=== PATIENT | male | born 1960 | race African-American/Black ===

== ENCOUNTER 2019-12-16 19:01 | Inpatient (IN) | payer MEDICARE ==
[~2019-12-16] VITALS: Ht 177.8 cm; Wt 68.5 kg
[~2019-12-16 19:01] MED LIST: ABILIFY5 MG PO; BACTRIM DS1 TAB PO; DEPAKOTE ER500 MG PO; DEPAKOTE250 MG PO; DOXYCYCL HYC100 M4 PO; KEFLEX500 MG PO; LORTAB 10 PO; MOTRIN800 MG/TAB PO; NAPROSYN500 MG PO; PERCOCET 5/325M1 TAB OR; REMERON45 MG OR; UNKNOWN ANTIBIOTIC; UNKNOWN PAIN MED; VIIBRYD10 MG OR
--- NOTE | 2019-12-16 19:03 | NUR ---
CALLED PT IN LOBBY. PT IN BATHROOM
--- NOTE | 2019-12-16 19:35 | NUR ---
BREATHING TREATMENT GIVEN ORDERED.
--- NOTE | 2019-12-16 20:00 | NUR ---
PATIENT REPORTS MARKED RELIEF FROM SOB SINCE BREATHING TREATMENTS, PATIENT APPEARS MORE COMFORTABLE, RESPIRATIONS EVEN AND UNLABORED.
[2019-12-16 20:12] LABS: HEMATOCRIT 41.8 % (39.0-50.0); HEMOGLOBIN 13.7 g/dl (14.0-18.0); IMMATURE GRANULOCYTES 0.3 % (0.0-5.0); MEAN CELL VOLUME 91.9 fL CALC (80.0-100.0); MEAN CORPUSCULAR HGB 30.1 pG CALC (26.0-32.0); MEAN CORPUSCULAR HGB CONC 32.8 g/dL CAL (32.0-36.0); NEUT# 7.03 thou/uL (1.82-7.42); RED BLOOD COUNT 4.55 mill/uL (4.70-6.10); RED CELL DISTRI WIDTH 13.1 % (11.5-15.5)
[2019-12-16 20:29] LABS: D-DIMER 1.4 mg/L (0.19-0.60)
[2019-12-16 20:30] LABS: ALBUMIN 4.3 g/dL (3.2-5.0); ALKALINE PHOSPHATASE 105 u/l (38-126); ANION GAP 12 (6-22 (CALC)); BILIRUBIN, TOTAL 0.4 mg/dL (0.0-1.4); BUN 10 mg/dL (8-23); BUN/CREATININE RATIO 14 (12-20 (CALC)); CARBON DIOXIDE 27 mmol/l (22-30); CHLORIDE 101 mmol/l (95-108); CREATININE 0.7 mg/dL (0.7-1.3); GFR > 60 ML/MIN (>=60 (CALC)); GFR FOR AFR.AMER. > 60 ML/MIN (>=60 (CALC)); POTASSIUM 4.4 mmol/l (3.5-5.1); SGOT/AST 31 u/l (19-48); SODIUM 135 mmol/l (137-146); TOTAL PROTEIN 7.6 g/dL (6.3-8.2)
[2019-12-16 20:34] LABS: C-REACTIVE PROTEIN 1.3 mg/dL (0-0.9)
[2019-12-16 20:40] LABS: URINE BILIRUBIN - DIPSTICK NEGATIVE (NEGATIVE); URINE BLOOD DIPSTICK NEGATIVE (NEGATIVE); URINE COLOR YELLOW; URINE GLUCOSE - DIPSTICK NEGATIVE (NEGATIVE); URINE KETONE NEGATIVE (NEGATIVE); URINE LEUK ESTERASE NEGATIVE (NEGATIVE); URINE NITRITE - DIPSTICK NEGATIVE (Negative); URINE PH 7.5 (4.5-8.0); URINE PROTEIN - DIPSTICK NEGATIVE (NEG-TRACE); URINE SPECIFIC GRAVITY 1.015; URINE UROBILINOGEN - DIPSTICK 0.2 E.U./dL (0.2)
--- NOTE | 2019-12-16 21:00 | NUR ---
RESTING QUIETLY, NO C/O PAIN OR DISCOMFORT, NO S/S OF DISTRESS NOTED, ABT TREATMENT IN PROGRESS.
--- NOTE | 2019-12-16 22:00 | NUR ---
RESTING QUIETLY WITH EYES CLOSED, RESPIRATIONS EVEN AND UNLABORED, NO C/O PAIN OR DISCOMFORT, NO S/S OF DISTRESS NOTED.
--- NOTE | 2019-12-16 23:00 | NUR ---
PATIENT AWAITING INPATIENT BED, LIGHTS OFF FOR COMFORT, PATIENT RESTING QUIETLY.
--- NOTE | 2019-12-17 00:01 | NUR ---
PATIENT AWAITING INPATIENT BED, RESTING QUIETLY WITH EYES CLOSED.
--- NOTE | 2019-12-17 01:29 | NUR ---
PATIENT RESTING QUIETLY AT THIS TIME, NO C/O PAIN OR DISCOMFORT, NO S/S OF DISTRESS NOTED, RESPIRATIONS EVEN AND UNLABORED.
--- NOTE | 2019-12-17 01:31 | NUR ---
PATIENT AWAITING INPATIENT BED.
--- NOTE | 2019-12-17 02:30 | NUR ---
EMPTIED URINAL WITH 350CC CLEAR YELLOW URINE, NO C/O PAIN OR DISCOMFORT, RESPIRATIONS EVEN AND UNALBORED.
--- NOTE | 2019-12-17 03:30 | NUR ---
RESTING QUIETLY WITH LIGHTS OFF, AWAITING INPATIENT BED.
[2019-12-17 04:35] LABS: HEMOGLOBIN 12.8 g/dl (14.0-18.0); IMMATURE GRANULOCYTES 0.2 % (0.0-5.0); MEAN CELL VOLUME 92.9 fL CALC (80.0-100.0); MEAN CORPUSCULAR HGB 30.5 pG CALC (26.0-32.0); MEAN CORPUSCULAR HGB CONC 32.8 g/dL CAL (32.0-36.0); NEUT# 3.82 thou/uL (1.82-7.42); RED BLOOD COUNT 4.2 mill/uL (4.70-6.10); RED CELL DISTRI WIDTH 13.1 % (11.5-15.5)
--- NOTE | 2019-12-17 04:36 | NUR ---
MORNING LABS DRAWN, URINAL EMPTIED WITH 350CC CLEAR YELLOW URINE. PATIENT AWAITING INPATIENT BED.
[2019-12-17 04:47] LABS: ALBUMIN 4.1 g/dL (3.2-5.0); ALKALINE PHOSPHATASE 89 u/l (38-126); ANION GAP 13 (6-22 (CALC)); BILIRUBIN, TOTAL 0.5 mg/dL (0.0-1.4); BUN 10 mg/dL (8-23); BUN/CREATININE RATIO 15 (12-20 (CALC)); CARBON DIOXIDE 26 mmol/l (22-30); CHLORIDE 103 mmol/l (95-108); CREATININE 0.7 mg/dL (0.7-1.3); GFR > 60 ML/MIN (>=60 (CALC)); GFR FOR AFR.AMER. > 60 ML/MIN (>=60 (CALC)); POTASSIUM 4.4 mmol/l (3.5-5.1); SGOT/AST 32 u/l (19-48); SODIUM 138 mmol/l (137-146); TOTAL PROTEIN 7.1 g/dL (6.3-8.2)
--- NOTE | 2019-12-17 05:50 | NUR ---
PATIENT RESTING QUIETLY, AWAITING INPATIENT BED, MEDICATIONS GIVEN PER PHYSICIAN ORDER. NO COUGH OR SOB NOTED AT THIS TIME.
--- NOTE | 2019-12-17 07:26 | NUR ---
RESPS EVEN,UNLABBORED. PT DENEIS COMPLAINTS THIS AM. PT STATES HIS BREATHING FEELS MUCH BETTER. LUNGS CLEAR BILATT AT THIS TIME. DRY COUGH NOTED. ATTEMPT TO CALL RT UNSUCCESSFUL. WILL ATTEMPT AGAIN SHORTLY. BREATHING TREATMENT DUE
--- NOTE | 2019-12-17 08:48 | NUR ---
BREATHING TREATMENT STARTED ON PT. PT ABLE TO TOLERATE 75% OF BREAKFAST TRAY. RESPS REMAIN EVEN, UNLABBORED. NAD NOTED.
[2019-12-17 10:07] VITALS: BP 153/89
--- NOTE | 2019-12-17 10:07 | NUR ---
PT ARRIVED TO MED/SURG ROOM 263 IN STABLE CONDITON VIA STRETCHER ACCOMPANIED BY MIRELLARN;PT AMBULATED TO BEDSIDE WITH A STEADY GAIT;WT AND VS OBTAINED AT THIS TIME;PT A&O X3,ORIENTED TO ROOM AND CALL LIGHT SYSTEM;PT DENIES ANY CURRENT PAIN OR DISCOMFORTS,PAIN SCALE AND REPORTING EDUCATED;PT REPORTS INCREASED SOB AND COUGHING X2 WEEKS,PT DENIES ANY SOB AT THIS TIME;ASSESSMENT COMPLETED;RESPIRATIONS EVEN AND UNLABORED ON RA,DIMINISHED LUNG SOUNDS;NON-PRODUCTIVE COUGH NOTED;ABDOMEN SOFT ON PALPATION AND ACTIVE IN ALL 4 QUADRANTS,LAST BM 12/16/19;STRONG PEDAL PULSES;SKIN INTACT, BUT PT REFUSES TO LET WRITTER ASSESS HIS BUTTUCK FOR WOUNDS;TELE MONITORING IN PLACE;#18G TO RAC INFUSING NS @ 125ML/HR PER ORDER,SITE APPEARS HEALTHY;FALL AND ALLERGY BAND APPLIED;HOME MEDICATONS (METHYLPREDNISOLONE & PROMETHAZINE) TO BE SENT TO PHARMACY;PT DENIES ANY ADDITIONAL NEEDS AT THIS TIME AND IS ENCOURAGED TO CALL FOR ASSISTANCE IF NEEDED;FALL PRECAUTIONS IN PLACE WITH BED IN THE LOWEST POSITION AND CALL LIGHT IN REACH;WILL CONTINUE TO MONITOR
--- NOTE | 2019-12-17 11:08 | NUR ---
PT TRANSPORTED TO MED/SURG ROOM 288 PER DEBBIE ANMONICA DUE TO PT REPORTS OF BEING EXPOSED TO A POSITIVE COVID19 [facility].
--- NOTE | 2019-12-17 12:50 | NUR ---
PT RESTING IN SEMI FOWLERS POSITION;RESPIRATIONS EVEN AND UNLABORED ON RA;PT DENIES ANY CURRENT PAIN OR NEEDS;TELE MONITORING IN PLACE;IV FLUIDS INFUSING WITH EASE;APPLE JUICE PROVIDED PER REQUEST;PT DENIES ANY ADDITIONAL NEEDS AT THIS TIME AND IS ENCOURAGED TO CALL FOR ASSISTANCE IF NEEDED;CALL LIGHT IN REACH;WILL CONTINUE TO MONITOR
--- NOTE | 2019-12-17 14:10 | NUR ---
IV SITE TO RAC FOUND INFILTRATED,SITE REMOVED WITH CATHETER INTACT.NEW #22G STARTED TO RIGHT HAND ON FIRST ATTEMPT BY THIS WRITTER AND PT TOLERATED WELL. NS RE-STARTED AT THIS TIME AND PT TO BE MEDICATED WITH SCHEDULED SOLUMEDROL PER ORDER;FRESH ICE AND CASSIE CRACKERS PROVIDED PER REQUEST;PT DENIES ANY ADDITIONAL NEEDS AND IS ENCOURAGED TO CALL FOR ASSISTANCE IF NEEDED;PT REMAINS IN ISOLATION DUE TO COVID19 TEST;CALL LIGHT IN REACH;WILL CONTINUE TO MONITOR
[2019-12-17 17:45] VITALS: BP 149/85
--- NOTE | 2019-12-17 17:45 | NUR ---
PT RESTING IN SEMI FOWLERS POSITION;RESPIRATIONS EVEN AND UNLABORED ON RA;PT DENIES ANY CURRENT PAIN OR DISCOMFORTS;TELE MONITORING IN PLACE;IV FLUIDS INFUSING WITH EASE PER ORDER;DINNER TRAY PROVIDED;PT DENIES ANY ADDITIONAL NEEDS AT THIS TIME AND IS ENCOURAGED TO CALL FOR ASSISTANCE IF NEEDED;CALL LIGHT IN REACH;WILL CONTINUE TO MONITOR
[2019-12-17 19:43] VITALS: BP 160/89
--- NOTE | 2019-12-17 20:45 | NUR ---
PT CALLED TO REPORT IVPUMP WAS SOUNDING. I WAS STANDING OUTSIDE OF ROOM AT THIS TIME SO I ENTERED SOON I COULD APPLY PPE. PT WAS BELIGERENT REGARDING THE NOISE OF THE PUMP AND HEAT OF THE ROOM. WE FOUND HIM A FAN, BUT IT IS NOT WORKING. MEDICATION SCHEDULE DISCUSSE WITH PT AT THIS TIME AND HE IS REQUESTING SEROQUIL FOR SLEEP, STATING HE ASKED THE PHYSICIAN FOR IT, I WILL CHECK HIS MEDREQ AND NOTIFY PHYSICIAN OF REQUEST IF NOT AVAILABLE ON AUG. OFFERED PT MORE ICE AND FOOD/SNACK, PT AGREED HE WOULD LIKE SOMETHING LIKE THAT AND JUICE. PT APPEARED TO BE IN A CALMER STATE I LEFT THE ROOM. I DID EXPLAIN TO THE PT THAT CARE WILL BE GROUPED TO A CERTAIN AMOUNT, BUT THAT IF HE HAS ANY KIND OF EMERGENCY OR CONCERN TO LET US KNOW AND REORIENTED THE CALL SYSTEM AND TELEPHONE USAGE ALSO. PT VERBALIZED UNDERSTANDING TO ALL. LIGHTS ADJUST AT THIS TIME TO PT'S PREFERENCE. WILL FOLLOW-UP WITH MEDICATIONS.
--- NOTE | 2019-12-17 22:15 | NUR ---
PHYSICIAN NOTIFIED OF PT REQUEST FOR SLEEP AIDE. NEW ORDERS RECEIVED.
--- NOTE | 2019-12-17 22:43 | NUR ---
PT MEDICATED FOR SLEEP AIDE ORDERS PROVIDE. PT DENIES ANY OTHER NEEDS. IV ANTIBIOTIC THERAPY IS RUNNING AND IVF WILL RESUME AFTER THAT. NO S/O DISTRESS NOTED. 400CC OF CLEAR YELLOW URINE EMPTIED FROM URINAL AT THIS TIME AND PT INSTRUCTED TO CALL NEEDS OF ASSISTANCE ARISE.
[2019-12-18] VITALS (7 sets, daily range): BP systolic 126–163; BP diastolic 62–90
--- NOTE | 2019-12-18 04:26 | NUR ---
PT MEDICATED ORDERS PROVIDE. PT DENIES ANY OTHER NEEDS. C/O "URINATING A LOT."
--- NOTE | 2019-12-18 07:30 | NUR ---
REPORT RECEIVED FROM JOHN IZAGUIRRE.
--- NOTE | 2019-12-18 09:40 | NUR ---
PT RESTING IN SEMI FOWLERS POSITION,A&O X3;VS OBTAINED AND ASSESSMENT COMPLETED;PT DENIES ANY CURRENT PAIN OR DISCOMFORTS,PAIN SCALE AND REPORTING EDUCATED;RESPIRATIONS EVEN AND UNLABORED ON RA,CLEAR/DIMINISHED LUNG SOUNDS NOTED,NON-PRODUCTIVE COUGH AT TIMES;ABDOMEN SOFT ON PALPATION AND ACTIVE IN ALL 4 QUADRANTS,LAST BM 12/17/19;STRONG PEDAL PULSES;SKIN INTACT;PNEUMONIA VACCINE ADMINISTERED TO [facility];PT DENIES ANY ADDITIONAL NEEDS AT THIS TIME;APPLIE JUICE PROVIDED;ENCOURAGED TO CALL FOR ASSISTANCE IF NEEDED;FALL PRECAUTIONS IN PLACE WITH BED IN THE LOWEST POSITION AND CALL LIGHT IN REACH;WILL CONTINUE TO MONITOR
--- NOTE | 2019-12-18 09:40 | NUR ---
PT TRANSPORTED TO ROOM 261 DUE TO COVID19 RAPID AND SWAB TESTING NEG.PT REPOSITIONED INTO BED;WILL CONTINUE TO MONITOR
--- NOTE | 2019-12-18 10:52 | NUR ---
AT BEDSIDE DISCUSSING POC WITH PT.
--- NOTE | 2019-12-18 10:54 | NUR ---
PT RESTING IN SEMI FOWLERS POSITION;RESPIRATIONS EVEN AND UNLABORED ON RA;PT DENIES ANY ADDITONAL NEEDS AT THIS TIME;TELE MONITORING IN PLACE;IV SITE PATENT;PT ENCOURAGED TO CALL FOR ASSISTANCE IF NEEDED;CALL LIGHT IN REACH;WILL CONTINUE TO MONITOR
[2019-12-18] MEDS ORDERED: BENZONATATE200 MG PO (14:06)
[2019-12-18] MEDS ORDERED: PROMETHAZI6.25 MG/5 PO (14:06)
[2019-12-18] MEDS ORDERED: ZITHROMAX Z-PA250 MG PO (14:19)
[2019-12-18] MEDS ORDERED: MEDDOSEPAK PO (14:20)
[2019-12-18] MEDS ORDERED: TRELEGY ELLIPTA1 AER IN (14:23)
[2019-12-18] MEDS ORDERED: PROAIR HFA108 MCG/AC IN (14:27)
[2019-12-18] MEDS ORDERED: METOPROL TAR100 MG PO (14:29)
[2019-12-18] MEDS ORDERED: CRESTOR20 MG PO (14:31)
[2019-12-18] MEDS ORDERED: TAMSULOSIN HCL0.4 MG PO (14:33)
--- NOTE | 2019-12-18 15:40 | NUR ---
PT RESTING IN SEMI FOWLERS POSITION;RESPIRATIONS EVEN AND UNLABORED AT THIS TIME;PT DENIES ANY CURRENT PAIN OR NEEDS;TELE MONITORING IN PLACE;IV SITE PATENT; RAZOR AND SHAVING CREAM PROVIDED PER REQUEST;PT ENCOURAGED TO CALL FOR ASSISTANCE IF NEEDED;FALL PRECAUTIONS IN PLACE WITH CALL LIGHT IN REACH;WILL CONTINUE TO MONITOR
--- NOTE | 2019-12-18 19:50 | NUR ---
PT JUST GOT OUT OF THE SHOWER, REPORTS FEELING REALLY GOOD AND WISHES HE COULD STAY HERE ALL THE TIME. STATES HE HAS BEEN VERY WELL TAKEN CARE OF. POWER SYSTEMS ENGINEER REPLACED AT THIS TIME. IV SITE DRESSING IS WET, DRESSING CHANGED AT THIS TIME. ASSESSMENT COMPLETED AND PT PROVIDED SNACK REQUESTED. PT IS ASKING FOR SANDWICHES/NO SANDWICHES ARE AVAILABLE, OTHER SNACK PROVIDED. PT DENIES ANY OTHER NEEDS AT THIS TIME. CALL LIGHT AT SIDE AND PT ENCOURAGED TO CALL NEEDS ARISE.
--- NOTE | 2019-12-18 22:30 | NUR ---
PT MEDICATED ORDERS PROVIDE. ANTIBIOTIC THERAPY UNABLE TO RUN TO IV SITE TO RH/APPEARS OCCLUDED/ATTEMPTS TO SAVE SITE WERE MADE TO NO AVAIL. NEW IV SITE ACCESSED/PT TOLERATED WELL. PT MEDICATED FOR COUGH, INDEGESTION AND W/SLEEP AIDE PER REQUEST AND SANWICH PROVIDED. PT DENIES ANY OTHER NEEDS AT THIS TIME.
[2019-12-19 03:40] VITALS: BP 105/66
--- NOTE | 2019-12-19 05:28 | NUR ---
PT MEDICATED ORDERS PROVIDE. PT HAVING A COUGHING SPELL WHILE I'M IN THE ROOM. WAS SLEEPING SOUNDLY WHEN I ENTERED. PT DENIES NEED OF ASSISTANCE AT THIS TIME. CALL LIGHT AT SIDE.
[2019-12-19 08:40] VITALS: BP 141/64
--- NOTE | 2019-12-19 08:40 | NUR ---
ASSESSMENT IS COMPLETED: IV SITE IS FREE FROM REDNESS OR EDEMA. HR IS REG,PULSES ARE STRONG X4, ABD IS SOFT WITH ACTIVE BS. BREATH SOUNDS ARE CLEAR AND DIMINISHED. TELE MONITOR IN PLACE. CONTINUE TO OSEBRVE AND MONITOR.
[2019-12-19 10:44] VITALS: BP 162/92
[2019-12-19] MEDS ORDERED: PREDNISONE10 MG PO (11:45)
[2019-12-19] MEDS ORDERED: ZITHROMAX Z-PA250 MG PO (11:45)
[2019-12-19] MEDS ORDERED: BENZONATATE200 MG PO (11:45)
[2019-12-19] MEDS ORDERED: IPRATROPIU0.5 MG/3 M IN (11:45)
--- NOTE | 2019-12-19 12:00 | NUR ---
PT IS RELAXING IN BED VISITING WITH FAMILY. WAITING FOR DISCHARGE. CONTINUE TO OSBERVE AND MONITOR.
--- NOTE | 2019-12-19 12:54 | NUR ---
IV SITE DISCONTINUED CATHETER INTACT. NO REDNESS OR EDEMA. DISCHARGE INSTRUCTIONS GIVEN AND VERBALIZED UNDERSTAND. WAITING ON MEDICATIONS FROM PHARMACY.
--- NOTE | 2019-12-19 13:00 | NUR ---
PT IS WITH FAMILY FOR DISCHARGE. CONTINUE TO OSBERVE AND MONITOR.
--- NOTE | 2019-12-19 13:40 | NUR ---
Discharge instructions given. Patient verbalizes understanding of same. Discharged in stable condition via Wheelchair to Home with family. All belongings sent with pt.
--- NOTE | 2019-12-25 14:50 | NUR ---
Pneumonia follow up D/C call done today. Pt states he is feeling better but still very winded. Obtained all medication prescribed on discharge. Pt. states he stopped taking prednisone because it gave him a headache. States he has not been taking antibiotics- he was saving them. He didn't think he needed them. Encouraged patient to take prescribed antibiotics and to call PCP for follow up appt. Also encouraged him to get direction from PCP regarding prednisone. Pt states he will call tomorrow. Appreciative of call.
== END 2019-12-19 13:07 | disposition home or self-care (01) | DRG 192 ==
LOC: ED 19:01 → ED-I 23:09 → ED 23:31 → ED-I 23:32 → MS2 23:32 → ED-I 23:32 → MS2 12-17 09:04
PROVIDERS: ADMIT Internal Medicine; ATTEND Internal Medicine
PROC: 3E0234Z Introduction of Serum, Toxoid and Vaccine into Muscle, Percutaneous Approach (ICD-10-PCS; principal; 2019-12-18)
DX: J44.1 Chronic obstructive pulmonary disease with (acute) exacerbation (principal); I10 Essential (primary) hypertension; F31.9 Bipolar disorder, unspecified; F17.200 Nicotine dependence, unspecified, uncomplicated; Z23 Encounter for immunization; Z20.828 Contact with and (suspected) exposure to other viral communicable diseases
CPT/HCPCS: Q9967

== ENCOUNTER 2020-01-18 08:47 | Emergency (ER) | payer MEDICARE ==
[~2020-01-18] VITALS: Ht 177.8 cm; Wt 72.0 kg
[~2020-01-18 08:47] MED LIST changes: +BENZONATATE200 MG PO; +CRESTOR20 MG PO; +IPRATROPIU0.5 MG/3 M IN; +MEDDOSEPAK PO; +METOPROL TAR100 MG PO; +PREDNISONE10 MG PO; +PROAIR HFA108 MCG/AC IN; +PROMETHAZI6.25 MG/5 PO; +TAMSULOSIN HCL0.4 MG PO; +TRELEGY ELLIPTA1 AER IN; +ZITHROMAX Z-PA250 MG PO
[2020-01-18 09:36] LABS: HEMATOCRIT 40.3 % (39.0-50.0); HEMOGLOBIN 13.2 g/dl (14.0-18.0); IMMATURE GRANULOCYTES 0.4 % (0.0-5.0); MEAN CELL VOLUME 92.9 fL CALC (80.0-100.0); MEAN CORPUSCULAR HGB 30.4 pG CALC (26.0-32.0); MEAN CORPUSCULAR HGB CONC 32.8 g/dL CAL (32.0-36.0); NEUT# 2.27 thou/uL (1.82-7.42); RED BLOOD COUNT 4.34 mill/uL (4.70-6.10); RED CELL DISTRI WIDTH 13.4 % (11.5-15.5)
[2020-01-18 09:48] LABS: ALBUMIN 4.3 g/dL (3.2-5.0); ALKALINE PHOSPHATASE 90 u/l (38-126); BILIRUBIN, TOTAL 0.4 mg/dL (0.0-1.4); BUN 15 mg/dL (8-23); BUN/CREATININE RATIO 20 (12-20 (CALC)); CARBON DIOXIDE 30 mmol/l (22-30); CHLORIDE 102 mmol/l (95-108); CREATININE 0.8 mg/dL (0.7-1.3); GFR > 60 ML/MIN (>=60 (CALC)); GFR FOR AFR.AMER. > 60 ML/MIN (>=60 (CALC)); SGOT/AST 51 u/l (19-48); SODIUM 138 mmol/l (137-146); TOTAL PROTEIN 7.4 g/dL (6.3-8.2)
[2020-01-18 09:54] LABS: D-DIMER 1.11 mg/L (0.19-0.60)
[2020-01-18 09:56] LABS: INTERNATIONAL NORMALIZED RATIO 0.9 RATIO (0.7-1.3); PROTHROMBIN TIME 9.2 SECONDS (9.0-12.5)
[2020-01-18 10:00] LABS: MYOGLOBIN 79 ng/mL (0 - 121)
[2020-01-18 10:02] LABS: ANION GAP 10 (6-22 (CALC)); POTASSIUM 3.5 mmol/l (3.5-5.1)
[2020-01-18] MEDS ORDERED: ZITHROMAX250 MG PO (11:33)
[2020-01-18] MEDS ORDERED: MEDDOSEPAK PO ×2 (11:33)
[2020-01-18 11:42] VITALS: BP 128/68
== END 2020-01-18 11:58 | disposition home or self-care (01) ==
LOC: ED 08:47
DX: J44.1 Chronic obstructive pulmonary disease with (acute) exacerbation (principal); I10 Essential (primary) hypertension; F17.210 Nicotine dependence, cigarettes, uncomplicated; Z20.828 Contact with and (suspected) exposure to other viral communicable diseases
CPT/HCPCS: Q9967

== ENCOUNTER 2020-02-05 05:25 | Emergency (ER) | payer MEDICARE ==
[~2020-02-05] VITALS: Ht 177.8 cm; Wt 68.0 kg
[~2020-02-05 05:25] MED LIST changes: +ZITHROMAX250 MG PO
--- NOTE | 2020-02-05 05:54 | NUR ---
BREATHING TREATMENT GIVEN BACK TO BACK.
[2020-02-05 06:12] LABS: HEMATOCRIT 37.9 % (39.0-50.0); HEMOGLOBIN 12.1 g/dl (14.0-18.0); IMMATURE GRANULOCYTES 0.2 % (0.0-5.0); MEAN CELL VOLUME 93.8 fL CALC (80.0-100.0); MEAN CORPUSCULAR HGB CONC 31.9 g/dL CAL (32.0-36.0); NEUT# 3.26 thou/uL (1.82-7.42); RED BLOOD COUNT 4.04 mill/uL (4.70-6.10); RED CELL DISTRI WIDTH 13.2 % (11.5-15.5)
[2020-02-05 06:44] LABS: ALBUMIN 3.9 g/dL (3.2-5.0); ALKALINE PHOSPHATASE 81 u/l (38-126); ANION GAP 9 (6-22 (CALC)); BILIRUBIN, TOTAL 0.4 mg/dL (0.0-1.4); BUN 12 mg/dL (8-23); BUN/CREATININE RATIO 15 (12-20 (CALC)); CARBON DIOXIDE 28 mmol/l (22-30); CHLORIDE 104 mmol/l (95-108); CREATININE 0.8 mg/dL (0.7-1.3); GFR > 60 ML/MIN (>=60 (CALC)); GFR FOR AFR.AMER. > 60 ML/MIN (>=60 (CALC)); POTASSIUM 3.7 mmol/l (3.5-5.1); SGOT/AST 32 u/l (19-48); SODIUM 137 mmol/l (137-146); TOTAL PROTEIN 6.6 g/dL (6.3-8.2)
[2020-02-05 06:52] LABS: D-DIMER 1.07 mg/L (0.19-0.60)
[2020-02-05 06:54] LABS: MYOGLOBIN 57 ng/mL (0 - 121)
[2020-02-05 07:01] LABS: PROTHROMBIN TIME 9.6 SECONDS (9.0-12.5)
[2020-02-05 07:51] LABS: URINE BILIRUBIN - DIPSTICK NEGATIVE (NEGATIVE); URINE BLOOD DIPSTICK NEGATIVE (NEGATIVE); URINE COLOR YELLOW; URINE GLUCOSE - DIPSTICK NEGATIVE (NEGATIVE); URINE KETONE NEGATIVE (NEGATIVE); URINE LEUK ESTERASE NEGATIVE (NEGATIVE); URINE NITRITE - DIPSTICK NEGATIVE (Negative); URINE PH 5.5 (4.5-8.0); URINE PROTEIN - DIPSTICK NEGATIVE (NEG-TRACE); URINE UROBILINOGEN - DIPSTICK 0.2 E.U./dL (0.2)
[2020-02-05] MEDS ORDERED: PROAIR HFA108 MCG/AC PO ×2 (08:15)
[2020-02-05] MEDS ORDERED: PREDNISONE50 MG PO ×2 (08:15)
[2020-02-05] MEDS ORDERED: ZPAK PO ×2 (08:17)
[2020-02-05 09:45] VITALS: BP 164/107
--- NOTE | 2020-02-06 08:07 | NUR ---
PRELIMINARY BLOOD CX RESULTS SHOW GRAM POSITIVE COCCI IN [address] SET[address] RESULTS CALL[address] TO DR RIVERO WHO RECOMMENDED CALLING PT. SPOKE WITH PT, REPORTS FEELING "100% BETTER", FILLED RXS AND HAS BEEN TAKING PRESCRIBED. WILL F/U WITH FINAL RESULTS.
== END 2020-02-05 09:45 | disposition home or self-care (01) ==
LOC: ED 05:25
PROVIDERS: Family Medicine
DX: J44.1 Chronic obstructive pulmonary disease with (acute) exacerbation (principal); I10 Essential (primary) hypertension; F17.210 Nicotine dependence, cigarettes, uncomplicated; Z20.828 Contact with and (suspected) exposure to other viral communicable diseases
CPT/HCPCS: Q9967

== ENCOUNTER 2020-02-16 21:02 | Emergency (ER) | payer MEDICARE ==
[~2020-02-16] VITALS: Ht 177.8 cm; Wt 70.5 kg
[~2020-02-16 21:02] MED LIST changes: +PREDNISONE50 MG PO; +PROAIR HFA108 MCG/AC PO; +ZPAK PO
[2020-02-16 21:50] LABS: HEMATOCRIT 37.6 % (39.0-50.0); IMMATURE GRANULOCYTES 0.5 % (0.0-5.0); MEAN CELL VOLUME 93.3 fL CALC (80.0-100.0); MEAN CORPUSCULAR HGB 29.8 pG CALC (26.0-32.0); MEAN CORPUSCULAR HGB CONC 31.9 g/dL CAL (32.0-36.0); NEUT# 1.98 thou/uL (1.82-7.42); RED BLOOD COUNT 4.03 mill/uL (4.70-6.10); RED CELL DISTRI WIDTH 13.5 % (11.5-15.5)
[2020-02-16 22:07] LABS: ALBUMIN 4.1 g/dL (3.2-5.0); ALKALINE PHOSPHATASE 74 u/l (38-126); ANION GAP 13 (6-22 (CALC)); BILIRUBIN, TOTAL 0.4 mg/dL (0.0-1.4); BUN 12 mg/dL (8-23); BUN/CREATININE RATIO 14 (12-20 (CALC)); CARBON DIOXIDE 25 mmol/l (22-30); CHLORIDE 103 mmol/l (95-108); CREATININE 0.9 mg/dL (0.7-1.3); GFR > 60 ML/MIN (>=60 (CALC)); GFR FOR AFR.AMER. > 60 ML/MIN (>=60 (CALC)); POTASSIUM 4.1 mmol/l (3.5-5.1); SGOT/AST 42 u/l (19-48); SODIUM 136 mmol/l (137-146); TOTAL PROTEIN 6.7 g/dL (6.3-8.2)
[2020-02-16 22:20] LABS: MYOGLOBIN 127 ng/mL (0 - 121)
[2020-02-16] MEDS ORDERED: KEFLEX500 M1 PO ×2 (22:38)
[2020-02-16] MEDS ORDERED: ROBITUSSIN AC10 ML PO (22:38)
[2020-02-16] MEDS ORDERED: MEDDOSEPAK PO ×2 (22:39)
[2020-02-16 23:10] VITALS: BP 141/69
[2020-02-16 23:19] LABS: URINE BILIRUBIN - DIPSTICK NEGATIVE (NEGATIVE); URINE BLOOD DIPSTICK NEGATIVE (NEGATIVE); URINE COLOR YELLOW; URINE GLUCOSE - DIPSTICK NEGATIVE (NEGATIVE); URINE KETONE NEGATIVE (NEGATIVE); URINE LEUK ESTERASE NEGATIVE (NEGATIVE); URINE NITRITE - DIPSTICK NEGATIVE (Negative); URINE PH 5.5 (4.5-8.0); URINE PROTEIN - DIPSTICK NEGATIVE (NEG-TRACE); URINE SPECIFIC GRAVITY <=1.005; URINE UROBILINOGEN - DIPSTICK 0.2 E.U./dL (0.2)
== END 2020-02-16 23:10 | disposition home or self-care (01) ==
LOC: ED 21:02
PROVIDERS: Emergency Medicine
DX: J44.9 Chronic obstructive pulmonary disease, unspecified (principal); I10 Essential (primary) hypertension; F17.200 Nicotine dependence, unspecified, uncomplicated; Z20.828 Contact with and (suspected) exposure to other viral communicable diseases; R06.02 Shortness of breath

== ENCOUNTER 2020-04-07 19:42 | Emergency (ER) | payer MEDICARE ==
[~2020-04-07] VITALS: Ht 177.8 cm; Wt 72.7 kg
[~2020-04-07 19:42] MED LIST changes: +KEFLEX500 M1 PO; +ROBITUSSIN AC10 ML PO
[2020-04-07 20:29] LABS: HEMATOCRIT 39.6 % (39.0-50.0); HEMOGLOBIN 12.7 g/dl (14.0-18.0); IMMATURE GRANULOCYTES 0.3 % (0.0-5.0); MEAN CELL VOLUME 95.4 fL CALC (80.0-100.0); MEAN CORPUSCULAR HGB 30.6 pG CALC (26.0-32.0); MEAN CORPUSCULAR HGB CONC 32.1 g/dL CAL (32.0-36.0); NEUT# 1.19 thou/uL (1.82-7.42); RED BLOOD COUNT 4.15 mill/uL (4.70-6.10); RED CELL DISTRI WIDTH 13.5 % (11.5-15.5)
[2020-04-07 20:46] LABS: ALBUMIN 4.1 g/dL (3.2-5.0); ALKALINE PHOSPHATASE 74 u/l (38-126); AMYLASE 82 u/l (30-110); ANION GAP 12 (6-22 (CALC)); BUN 8 mg/dL (8-23); BUN/CREATININE RATIO 8 (12-20 (CALC)); CARBON DIOXIDE 25 mmol/l (22-30); CHLORIDE 104 mmol/l (95-108); CPK 257 u/l (52-200); CREATININE 0.9 mg/dL (0.7-1.3); GFR > 60 ML/MIN (>=60 (CALC)); GFR FOR AFR.AMER. > 60 ML/MIN (>=60 (CALC)); LIPASE 77 u/l (23-300); POTASSIUM 4.2 mmol/l (3.5-5.1); SGOT/AST 34 u/l (19-48); SODIUM 138 mmol/l (137-146)
[2020-04-07 20:48] LABS: BILIRUBIN, TOTAL 0.2 mg/dL (0.0-1.4)
[2020-04-07] MEDS ORDERED: HYCODAN1 ML PO (22:14)
[2020-04-07] MEDS ORDERED: MEDDOSEPAK PO ×2 (22:14→22:15)
[2020-04-07] MEDS ORDERED: ZPAK PO (22:14)
[2020-04-07 22:17] VITALS: BP 164/94
[2020-04-07 22:52] LABS: URINE BILIRUBIN - DIPSTICK NEGATIVE (NEGATIVE); URINE BLOOD DIPSTICK NEGATIVE (NEGATIVE); URINE COLOR YELLOW; URINE GLUCOSE - DIPSTICK NEGATIVE (NEGATIVE); URINE KETONE NEGATIVE (NEGATIVE); URINE LEUK ESTERASE NEGATIVE (NEGATIVE); URINE NITRITE - DIPSTICK NEGATIVE (Negative); URINE PROTEIN - DIPSTICK NEGATIVE (NEG-TRACE); URINE UROBILINOGEN - DIPSTICK 0.2 E.U./dL (0.2)
== END 2020-04-07 22:59 | disposition home or self-care (01) ==
LOC: ED 19:42
DX: J44.1 Chronic obstructive pulmonary disease with (acute) exacerbation (principal); I10 Essential (primary) hypertension; F31.9 Bipolar disorder, unspecified; F17.200 Nicotine dependence, unspecified, uncomplicated; Z20.828 Contact with and (suspected) exposure to other viral communicable diseases
CPT/HCPCS: Q9967

== ENCOUNTER 2020-05-05 09:40 | Emergency (ER) | payer MEDICARE ==
[~2020-05-05] VITALS: Ht 177.8 cm; Wt 80.0 kg
[~2020-05-05 09:40] MED LIST changes: +HYCODAN1 ML PO
[2020-05-05 10:27] LABS: HEMATOCRIT 44.7 % (39.0-50.0); HEMOGLOBIN 14.4 g/dl (14.0-18.0); IMMATURE GRANULOCYTES 0.2 % (0.0-5.0); MEAN CELL VOLUME 94.5 fL CALC (80.0-100.0); MEAN CORPUSCULAR HGB 30.4 pG CALC (26.0-32.0); MEAN CORPUSCULAR HGB CONC 32.2 g/dL CAL (32.0-36.0); NEUT# 1.78 thou/uL (1.82-7.42); RED BLOOD COUNT 4.73 mill/uL (4.70-6.10)
[2020-05-05 10:45] LABS: ALBUMIN 4.4 g/dL (3.2-5.0); ALKALINE PHOSPHATASE 91 u/l (38-126); ANION GAP 13 (6-22 (CALC)); BUN 20 mg/dL (8-23); BUN/CREATININE RATIO 21 (12-20 (CALC)); CARBON DIOXIDE 30 mmol/l (22-30); CHLORIDE 102 mmol/l (95-108); GFR > 60 ML/MIN (>=60 (CALC)); GFR FOR AFR.AMER. > 60 ML/MIN (>=60 (CALC)); POTASSIUM 4.7 mmol/l (3.5-5.1); SODIUM 140 mmol/l (137-146); TOTAL PROTEIN 7.7 g/dL (6.3-8.2)
[2020-05-05 10:53] LABS: BILIRUBIN, TOTAL 0.3 mg/dL (0.0-1.4); SGOT/AST 67 u/l (19-48)
[2020-05-05 11:06] VITALS: BP 129/86
== END 2020-05-05 10:55 | disposition short-term general hospital (02) ==
LOC: ED 09:40
PROVIDERS: Family Medicine
DX: I20.0 Unstable angina (principal); I10 Essential (primary) hypertension; F31.9 Bipolar disorder, unspecified; F17.200 Nicotine dependence, unspecified, uncomplicated; Z20.828 Contact with and (suspected) exposure to other viral communicable diseases
CPT/HCPCS: J1644

== ENCOUNTER 2020-11-04 09:09 | Emergency (ER) | payer MEDICARE ==
[~2020-11-04] VITALS: Ht 177.8 cm; Wt 73.6 kg
[2020-11-04 09:42] LABS: HEMATOCRIT 43.2 % (39.0-50.0); HEMOGLOBIN 13.5 g/dl (14.0-18.0); IMMATURE GRANULOCYTES 0.2 % (0.0-5.0); MEAN CELL VOLUME 94.3 fL CALC (80.0-100.0); MEAN CORPUSCULAR HGB 29.5 pG CALC (26.0-32.0); MEAN CORPUSCULAR HGB CONC 31.3 g/dL CAL (32.0-36.0); NEUT# 1.79 thou/uL (1.82-7.42); RED BLOOD COUNT 4.58 mill/uL (4.70-6.10); RED CELL DISTRI WIDTH 12.7 % (11.5-15.5)
[2020-11-04 09:54] LABS: ALBUMIN 4.2 g/dL (3.2-5.0); ALKALINE PHOSPHATASE 108 u/l (38-126); BUN 11 mg/dL (8-23); BUN/CREATININE RATIO 14 (12-20 (CALC)); CARBON DIOXIDE 30 mmol/l (22-30); CHLORIDE 103 mmol/l (95-108); CREATININE 0.8 mg/dL (0.7-1.3); GFR > 60 ML/MIN (>=60 (CALC)); GFR FOR AFR.AMER. > 60 ML/MIN (>=60 (CALC)); SGOT/AST 49 u/l (19-48); SODIUM 139 mmol/l (137-146)
[2020-11-04 09:55] LABS: ANION GAP 10 (6-22 (CALC)); BILIRUBIN, TOTAL 0.5 mg/dL (0.0-1.4); POTASSIUM 3.7 mmol/l (3.5-5.1)
[2020-11-04] MEDS ORDERED: CHERATUSSIN PO (10:17)
[2020-11-04] MEDS ORDERED: PREDNISONE50 MG PO (10:17)
[2020-11-04] MEDS ORDERED: DOXYCYC MONO100 M2 PO (10:17)
[2020-11-04 10:24] VITALS: BP 166/88
== END 2020-11-04 10:34 | disposition home or self-care (01) ==
LOC: ED 09:09
PROVIDERS: Family Medicine
DX: J44.9 Chronic obstructive pulmonary disease, unspecified (principal); I10 Essential (primary) hypertension; F31.9 Bipolar disorder, unspecified; F17.200 Nicotine dependence, unspecified, uncomplicated; Z20.822 Contact with and (suspected) exposure to COVID-19

== ENCOUNTER 2020-11-13 05:34 | Emergency (ER) | payer MEDICARE ==
[~2020-11-13] VITALS: Ht 177.8 cm; Wt 75.0 kg
[~2020-11-13 05:34] MED LIST changes: +CHERATUSSIN PO; +DOXYCYC MONO100 M2 PO
[2020-11-13 06:46] LABS: HEMATOCRIT 42.3 % (39.0-50.0); HEMOGLOBIN 13.7 g/dl (14.0-18.0); IMMATURE GRANULOCYTES 0.4 % (0.0-5.0); MEAN CORPUSCULAR HGB 29.8 pG CALC (26.0-32.0); MEAN CORPUSCULAR HGB CONC 32.4 g/dL CAL (32.0-36.0); NEUT# 1.65 thou/uL (1.82-7.42); RED BLOOD COUNT 4.6 mill/uL (4.70-6.10); RED CELL DISTRI WIDTH 13.2 % (11.5-15.5)
[2020-11-13] MEDS ORDERED: STERAPRED DS10 MG PO (06:53)
[2020-11-13 07:03] VITALS: BP 148/81
== END 2020-11-13 07:12 | disposition home or self-care (01) ==
LOC: ED 05:34
PROVIDERS: Family Medicine
DX: J44.1 Chronic obstructive pulmonary disease with (acute) exacerbation (principal); I10 Essential (primary) hypertension; F31.9 Bipolar disorder, unspecified; F17.210 Nicotine dependence, cigarettes, uncomplicated

== ENCOUNTER 2020-12-03 17:30 | Emergency (ER) | payer MEDICARE ==
[~2020-12-03] VITALS: Ht 177.8 cm; Wt 75.0 kg
[~2020-12-03 17:30] MED LIST changes: +STERAPRED DS10 MG PO
[2020-12-03 18:47] LABS: HEMATOCRIT 39.8 % (39.0-50.0); HEMOGLOBIN 12.8 g/dl (14.0-18.0); IMMATURE GRANULOCYTES 0.4 % (0.0-5.0); MEAN CELL VOLUME 92.3 fL CALC (80.0-100.0); MEAN CORPUSCULAR HGB 29.7 pG CALC (26.0-32.0); MEAN CORPUSCULAR HGB CONC 32.2 g/dL CAL (32.0-36.0); NEUT# 3.81 thou/uL (1.82-7.42); RED BLOOD COUNT 4.31 mill/uL (4.70-6.10)
[2020-12-03 19:00] LABS: ALBUMIN 3.7 g/dL (3.2-5.0); ALKALINE PHOSPHATASE 65 u/l (38-126); ANION GAP 7 (6-22 (CALC)); BILIRUBIN, TOTAL 0.2 mg/dL (0.0-1.4); BUN 15 mg/dL (8-23); BUN/CREATININE RATIO 16 (12-20 (CALC)); CARBON DIOXIDE 30 mmol/l (22-30); CHLORIDE 102 mmol/l (95-108); CREATININE 0.9 mg/dL (0.7-1.3); GFR > 60 ML/MIN (>=60 (CALC)); GFR FOR AFR.AMER. > 60 ML/MIN (>=60 (CALC)); POTASSIUM 4.3 mmol/l (3.5-5.1); SGOT/AST 25 u/l (19-48); SODIUM 135 mmol/l (137-146); TOTAL PROTEIN 6.8 g/dL (6.3-8.2)
[2020-12-03 19:12] LABS: MYOGLOBIN 20 ng/mL (0 - 121)
[2020-12-03 20:21] LABS: URINE BILIRUBIN - DIPSTICK NEGATIVE (NEGATIVE); URINE BLOOD DIPSTICK NEGATIVE (NEGATIVE); URINE COLOR YELLOW; URINE GLUCOSE - DIPSTICK NEGATIVE (NEGATIVE); URINE KETONE TRACE mg/dL (NEGATIVE); URINE LEUK ESTERASE NEGATIVE (NEGATIVE); URINE PROTEIN - DIPSTICK NEGATIVE (NEG-TRACE); URINE SPECIFIC GRAVITY 1.025; URINE UROBILINOGEN - DIPSTICK 0.2 E.U./dL (0.2)
[2020-12-03 20:24] LABS: URINE NITRITE - DIPSTICK NEGATIVE (Negative)
[2020-12-03 21:40] VITALS: BP 128/62
== END 2020-12-03 21:57 | disposition home or self-care (01) ==
LOC: ED 17:30
PROVIDERS: Emergency Medicine
DX: R07.89 Other chest pain (principal); I10 Essential (primary) hypertension; F31.9 Bipolar disorder, unspecified; F17.200 Nicotine dependence, unspecified, uncomplicated; Z20.822 Contact with and (suspected) exposure to COVID-19
CPT/HCPCS: Q9967

== ENCOUNTER 2021-02-18 19:32 | Emergency (ER) | payer MEDICARE ==
[~2021-02-18] VITALS: Ht 177.8 cm; Wt 79.5 kg
[2021-02-18 20:55] LABS: HEMATOCRIT 42.1 % (39.0-50.0); HEMOGLOBIN 13.3 g/dl (14.0-18.0); IMMATURE GRANULOCYTES 0.3 % (0.0-5.0); MEAN CORPUSCULAR HGB CONC 31.6 g/dL CAL (32.0-36.0); NEUT# 4.27 thou/uL (1.82-7.42); RED BLOOD COUNT 4.43 mill/uL (4.70-6.10); RED CELL DISTRI WIDTH 13.7 % (11.5-15.5)
[2021-02-18 20:56] LABS: URINE BILIRUBIN - DIPSTICK NEGATIVE (NEGATIVE); URINE BLOOD DIPSTICK NEGATIVE (NEGATIVE); URINE COLOR YELLOW; URINE GLUCOSE - DIPSTICK NEGATIVE (NEGATIVE); URINE KETONE NEGATIVE (NEGATIVE); URINE LEUK ESTERASE NEGATIVE (NEGATIVE); URINE PROTEIN - DIPSTICK NEGATIVE (NEG-TRACE); URINE UROBILINOGEN - DIPSTICK 0.2 E.U./dL (0.2)
[2021-02-18 20:57] LABS: URINE NITRITE - DIPSTICK NEGATIVE (Negative)
[2021-02-18 21:07] LABS: ALKALINE PHOSPHATASE 72 u/l (38-126); ANION GAP 10 (6-22 (CALC)); BILIRUBIN, TOTAL 0.1 mg/dL (0.0-1.4); BUN 13 mg/dL (8-23); BUN/CREATININE RATIO 12 (12-20 (CALC)); CARBON DIOXIDE 32 mmol/l (22-30); CHLORIDE 102 mmol/l (95-108); GFR > 60 ML/MIN (>=60 (CALC)); GFR FOR AFR.AMER. > 60 ML/MIN (>=60 (CALC)); POTASSIUM 3.5 mmol/l (3.5-5.1); SGOT/AST 25 u/l (19-48); SODIUM 140 mmol/l (137-146)
[2021-02-18] MEDS ORDERED: TORADOL PO (22:08)
[2021-02-18 22:10] VITALS: BP 158/86
[2021-02-19] MEDS ORDERED: FIORICET PO (11:23)
== END 2021-02-18 22:19 | disposition home or self-care (01) ==
LOC: ED 19:32
PROVIDERS: Family Medicine
DX: R51.9 Headache, unspecified (principal); I10 Essential (primary) hypertension; F31.9 Bipolar disorder, unspecified; F17.210 Nicotine dependence, cigarettes, uncomplicated; F17.220 Nicotine dependence, chewing tobacco, uncomplicated

== ENCOUNTER 2021-02-19 09:22 | Emergency (ER) | payer MEDICARE ==
[~2021-02-19] VITALS: Ht 177.8 cm; Wt 70.0 kg
[~2021-02-19 09:22] MED LIST changes: +TORADOL PO
[2021-02-19] MEDS ORDERED: FIORICET PO (11:23)
[2021-02-19 11:38] VITALS: BP 170/80
== END 2021-02-19 11:38 | disposition home or self-care (01) ==
LOC: ED 09:22
DX: R51.9 Headache, unspecified (principal); I10 Essential (primary) hypertension; F31.9 Bipolar disorder, unspecified; F17.200 Nicotine dependence, unspecified, uncomplicated

== ENCOUNTER 2021-02-26 21:21 | Emergency (ER) | payer MEDICARE ==
[~2021-02-26] VITALS: Ht 177.8 cm; Wt 89.0 kg
[~2021-02-26 21:21] MED LIST changes: +FIORICET PO
[2021-02-26 22:00] LABS: HEMOGLOBIN 12.6 g/dl (14.0-18.0); IMMATURE GRANULOCYTES 0.2 % (0.0-5.0); MEAN CELL VOLUME 94.3 fL CALC (80.0-100.0); MEAN CORPUSCULAR HGB 29.7 pG CALC (26.0-32.0); MEAN CORPUSCULAR HGB CONC 31.5 g/dL CAL (32.0-36.0); NEUT# 2.54 thou/uL (1.82-7.42); RED BLOOD COUNT 4.24 mill/uL (4.70-6.10); RED CELL DISTRI WIDTH 13.5 % (11.5-15.5)
[2021-02-26 22:13] LABS: ALKALINE PHOSPHATASE 45 u/l (38-126); BUN 8 mg/dL (8-23); BUN/CREATININE RATIO 15 (12-20 (CALC)); CREATININE 0.6 mg/dL (0.7-1.3); GFR > 60 ML/MIN (>=60 (CALC)); GFR FOR AFR.AMER. > 60 ML/MIN (>=60 (CALC)); SGOT/AST 24 u/l (19-48); SODIUM 140 mmol/l (137-146)
[2021-02-26 22:15] LABS: ALBUMIN 2.8 g/dL (3.2-5.0); ANION GAP 7 (6-22 (CALC)); BILIRUBIN, TOTAL 0.3 mg/dL (0.0-1.4); CARBON DIOXIDE 20 mmol/l (22-30); CHLORIDE 116 mmol/l (95-108); POTASSIUM 2.7 mmol/l (3.5-5.1); TOTAL PROTEIN 5.2 g/dL (6.3-8.2)
[2021-02-26 22:25] LABS: MYOGLOBIN 48 ng/mL (0 - 121)
[2021-02-27 00:54] LABS: URINE BILIRUBIN - DIPSTICK NEGATIVE (NEGATIVE); URINE BLOOD DIPSTICK NEGATIVE (NEGATIVE); URINE COLOR YELLOW; URINE GLUCOSE - DIPSTICK NEGATIVE (NEGATIVE); URINE KETONE NEGATIVE (NEGATIVE); URINE LEUK ESTERASE NEGATIVE (NEGATIVE); URINE PH 6.5 (4.5-8.0); URINE PROTEIN - DIPSTICK NEGATIVE (NEG-TRACE); URINE SPECIFIC GRAVITY 1.015; URINE UROBILINOGEN - DIPSTICK 0.2 E.U./dL (0.2)
[2021-02-27 00:55] LABS: URINE NITRITE - DIPSTICK NEGATIVE (Negative)
[2021-02-27] MEDS ORDERED: NAPROXEN500 MG PO (04:10)
[2021-02-27 04:29] VITALS: BP 159/84
== END 2021-02-27 04:30 | disposition home or self-care (01) ==
LOC: ED 21:21
PROVIDERS: Emergency Medicine
DX: I10 Essential (primary) hypertension (principal); R51.9 Headache, unspecified; E87.6 Hypokalemia; F31.9 Bipolar disorder, unspecified; F17.200 Nicotine dependence, unspecified, uncomplicated; Z20.822 Contact with and (suspected) exposure to COVID-19

== ENCOUNTER 2021-06-10 10:35 | Emergency (ER) | payer MEDICARE ==
[~2021-06-10] VITALS: Ht 177.8 cm; Wt 62.0 kg
[~2021-06-10 10:35] MED LIST changes: +NAPROXEN500 MG PO
[2021-06-10 13:01] VITALS: BP 142/70
== END 2021-06-10 13:01 | disposition home or self-care (01) ==
LOC: ED 10:35
PROC: 0HQEXZZ Repair Left Lower Arm Skin, External Approach (ICD-10-PCS; principal; 2021-06-10)
DX: S51.812A Laceration without foreign body of left forearm, initial encounter (principal); I10 Essential (primary) hypertension; F31.9 Bipolar disorder, unspecified; F17.200 Nicotine dependence, unspecified, uncomplicated; W26.8XXA Contact with other sharp object(s), not elsewhere classified, initial encounter; Y92.009 Unspecified place in unspecified non-institutional (private) residence as the place of occurrence of the external cause

== ENCOUNTER 2021-09-15 23:25 | Observation (INO) | payer MEDICARE ==
[~2021-09-15] VITALS: Ht 177.8 cm; Wt 75.0 kg
[2021-09-15 23:32] VITALS: BP 140/121
[2021-09-15 23:58] LABS: HEMATOCRIT 42.4 % (39.0-50.0); HEMOGLOBIN 13.4 g/dl (14.0-18.0); IMMATURE GRANULOCYTES 0.1 % (0.0-5.0); MEAN CELL VOLUME 95.1 fL CALC (80.0-100.0); MEAN CORPUSCULAR HGB CONC 31.6 g/dL CAL (32.0-36.0); NEUT# 4.52 thou/uL (1.82-7.42); RED BLOOD COUNT 4.46 mill/uL (4.70-6.10); RED CELL DISTRI WIDTH 13.8 % (11.5-15.5)
[2021-09-16] VITALS (167 sets, daily range): BP systolic 91–218; BP diastolic 69–145
[2021-09-16 00:21] LABS: ACT PARTIAL THROMBO TIME 24.1 SECONDS (20.0-32.5)
[2021-09-16 00:22] LABS: BILIRUBIN, TOTAL 0.3 mg/dL (0.0-1.4); BUN 11 mg/dL (8-23); BUN/CREATININE RATIO 13 (12-20 (CALC)); CHLORIDE 105 mmol/l (95-108); CREATININE 0.8 mg/dL (0.7-1.3); GFR > 60 ML/MIN (>=60 (CALC)); GFR FOR AFR.AMER. > 60 ML/MIN (>=60 (CALC)); POTASSIUM 4.5 mmol/l (3.5-5.1); SGOT/AST 38 u/l (19-48); SODIUM 141 mmol/l (137-146)
[2021-09-16 00:25] LABS: ALBUMIN 4.5 g/dL (3.2-5.0); ALKALINE PHOSPHATASE 101 u/l (38-126); ANION GAP 14 (6-22 (CALC)); CARBON DIOXIDE 27 mmol/l (22-30); TOTAL PROTEIN 8.2 g/dL (6.3-8.2)
[2021-09-16 00:34] LABS: MYOGLOBIN 54 ng/mL (0 - 121)
[2021-09-16 00:51] LABS: URINE BILIRUBIN - DIPSTICK NEGATIVE (NEGATIVE); URINE BLOOD DIPSTICK NEGATIVE (NEGATIVE); URINE COLOR YELLOW; URINE GLUCOSE - DIPSTICK NEGATIVE (NEGATIVE); URINE KETONE NEGATIVE (NEGATIVE); URINE LEUK ESTERASE NEGATIVE (NEGATIVE); URINE PROTEIN - DIPSTICK NEGATIVE (NEG-TRACE); URINE SPECIFIC GRAVITY <=1.005; URINE UROBILINOGEN - DIPSTICK 0.2 E.U./dL (0.2)
[2021-09-16 00:54] LABS: URINE NITRITE - DIPSTICK NEGATIVE (Negative)
[2021-09-16] MEDS ORDERED: MIRTAZAPINE30 M1 PO (01:08)
[2021-09-16] MEDS ORDERED: ZITHROMAX250 MG PO (01:09)
[2021-09-16] MEDS ORDERED: SEROQUEL200 MG PO (01:09)
[2021-09-16] MEDS ORDERED: MEDDOSEPAK PO (01:10)
[2021-09-16 05:12] LABS: HEMATOCRIT 39.9 % (39.0-50.0); IMMATURE GRANULOCYTES 0.1 % (0.0-5.0); MEAN CELL VOLUME 93.2 fL CALC (80.0-100.0); MEAN CORPUSCULAR HGB 30.4 pG CALC (26.0-32.0); MEAN CORPUSCULAR HGB CONC 32.6 g/dL CAL (32.0-36.0); NEUT# 7.56 thou/uL (1.82-7.42); RED BLOOD COUNT 4.28 mill/uL (4.70-6.10); RED CELL DISTRI WIDTH 13.8 % (11.5-15.5)
[2021-09-16 05:28] LABS: ALBUMIN 4.2 g/dL (3.2-5.0); ALKALINE PHOSPHATASE 105 u/l (38-126); ANION GAP 12 (6-22 (CALC)); BILIRUBIN, TOTAL 0.2 mg/dL (0.0-1.4); BUN 10 mg/dL (8-23); BUN/CREATININE RATIO 13 (12-20 (CALC)); C-REACTIVE PROTEIN 0.6 mg/dL (0-0.9); CALCULATED LDLCHOLESTEROL 110 mg/dL (62-129 (CALC)); CARBON DIOXIDE 27 mmol/l (22-30); CHLORIDE 103 mmol/l (95-108); CHOLESTEROL HDL RATIO 3.1 (<4.4 (CALC)); CREATININE 0.8 mg/dL (0.7-1.3); GFR > 60 ML/MIN (>=60 (CALC)); GFR FOR AFR.AMER. > 60 ML/MIN (>=60 (CALC)); HDL CHOLESTEROL 59 mg/dL (>=40); POTASSIUM 4.1 mmol/l (3.5-5.1); SGOT/AST 31 u/l (19-48); SODIUM 138 mmol/l (137-146); TOTAL CHOLESTEROL 184 mg/dl (0-199); TOTAL PROTEIN 7.7 g/dL (6.3-8.2); TOTAL TRIGLYCERIDES 71 mg/dl (30-149); VLDL CHOLESTROL 14 mg/dl (4-45 (CALC))
[2021-09-16 05:32] LABS: MAGNESIUM 1.9 mg/dL (1.6-2.3)
[2021-09-16] MEDS ORDERED: MONTELUKAST SOD10 MG PO (09:27)
[2021-09-16] MEDS ORDERED: IPRATROPIUM BR0.03 % (09:27)
[2021-09-16] MEDS ORDERED: CRESTOR5 MG PO (09:29)
[2021-09-16] MEDS ORDERED: IPRATROPIU0.5 MG/3 M NEB (09:29)
[2021-09-16] MEDS ORDERED: METOPROL TAR100 MG PO (09:30)
[2021-09-16] MEDS ORDERED: SYMBICORT1 AE1 PO (09:30)
[2021-09-16] MEDS ORDERED: OMEPRAZOLE20 MG PO (09:31)
[2021-09-16] MEDS ORDERED: PROAIR HFA IN (09:32)
[2021-09-16] MEDS ORDERED: CYPROHEPTAD4 MG PO (09:32)
[2021-09-16] MEDS ORDERED: AIMOVIG140 MG/ML SC (09:33)
[2021-09-16] MEDS ORDERED: COZAAR50 MG PO (09:33)
[2021-09-17] VITALS (18 sets, daily range): BP systolic 135–176; BP diastolic 78–131
[2021-09-17 08:34] LABS: HEMATOCRIT 39.4 % (39.0-50.0); HEMOGLOBIN 12.8 g/dl (14.0-18.0); IMMATURE GRANULOCYTES 0.2 % (0.0-5.0); MEAN CELL VOLUME 92.7 fL CALC (80.0-100.0); MEAN CORPUSCULAR HGB 30.1 pG CALC (26.0-32.0); MEAN CORPUSCULAR HGB CONC 32.5 g/dL CAL (32.0-36.0); NEUT# 10.23 thou/uL (1.82-7.42); RED BLOOD COUNT 4.25 mill/uL (4.70-6.10); RED CELL DISTRI WIDTH 13.7 % (11.5-15.5)
[2021-09-17 09:04] LABS: ANION GAP 13 (6-22 (CALC)); BUN 17 mg/dL (8-23); BUN/CREATININE RATIO 21 (12-20 (CALC)); CARBON DIOXIDE 27 mmol/l (22-30); CHLORIDE 104 mmol/l (95-108); CREATININE 0.8 mg/dL (0.7-1.3); GFR > 60 ML/MIN (>=60 (CALC)); GFR FOR AFR.AMER. > 60 ML/MIN (>=60 (CALC)); SODIUM 139 mmol/l (137-146)
[2021-09-18] VITALS (12 sets, daily range): BP systolic 127–183; BP diastolic 64–101
[2021-09-18 05:44] LABS: HEMATOCRIT 38.9 % (39.0-50.0); HEMOGLOBIN 12.5 g/dl (14.0-18.0); IMMATURE GRANULOCYTES 0.3 % (0.0-5.0); MEAN CELL VOLUME 93.5 fL CALC (80.0-100.0); MEAN CORPUSCULAR HGB CONC 32.1 g/dL CAL (32.0-36.0); NEUT# 8.41 thou/uL (1.82-7.42); RED BLOOD COUNT 4.16 mill/uL (4.70-6.10); RED CELL DISTRI WIDTH 13.5 % (11.5-15.5)
[2021-09-18 06:04] LABS: ANION GAP 10 (6-22 (CALC)); BUN 17 mg/dL (8-23); BUN/CREATININE RATIO 23 (12-20 (CALC)); CARBON DIOXIDE 26 mmol/l (22-30); CHLORIDE 108 mmol/l (95-108); CREATININE 0.8 mg/dL (0.7-1.3); GFR > 60 ML/MIN (>=60 (CALC)); GFR FOR AFR.AMER. > 60 ML/MIN (>=60 (CALC)); POTASSIUM 4.7 mmol/l (3.5-5.1); SODIUM 138 mmol/l (137-146)
[2021-09-18] MEDS ORDERED: PLAVIX75 MG PO (10:49)
[2021-09-18] MEDS ORDERED: TEGRETOL PO (10:49)
[2021-09-18] MEDS ORDERED: PREDNISONE50 MG PO (10:50)
== END 2021-09-18 12:05 | disposition home or self-care (01) ==
LOC: ED 23:25 → ED-I 09-16 00:37 → ED 09-16 01:21 → ICU 09-16 01:22
PROVIDERS: Family Medicine; ADMIT Internal Medicine; ATTEND Internal Medicine
DX: G45.9 Transient cerebral ischemic attack, unspecified (principal); I10 Essential (primary) hypertension; J44.1 Chronic obstructive pulmonary disease with (acute) exacerbation; E78.5 Hyperlipidemia, unspecified; F31.9 Bipolar disorder, unspecified; F17.210 Nicotine dependence, cigarettes, uncomplicated; Z86.73 Personal history of transient ischemic attack (TIA), and cerebral infarction without residual deficits; Z20.822 Contact with and (suspected) exposure to COVID-19
CPT/HCPCS: A9579; J2060; Q9967

== ENCOUNTER 2021-12-26 20:23 | Emergency (ER) | payer MEDICARE ==
[~2021-12-26] VITALS: Ht 177.8 cm; Wt 77.0 kg
[~2021-12-26 20:23] MED LIST changes: +AIMOVIG140 MG/ML SC; +COZAAR50 MG PO; +CRESTOR5 MG PO; +CYPROHEPTAD4 MG PO; +IPRATROPIU0.5 MG/3 M NEB; +IPRATROPIUM BR0.03 %; +MIRTAZAPINE30 M1 PO; +MONTELUKAST SOD10 MG PO; +OMEPRAZOLE20 MG PO; +PLAVIX75 MG PO; +PROAIR HFA IN; +SEROQUEL200 MG PO; +SYMBICORT1 AE1 PO; +TEGRETOL PO
[2021-12-26 21:10] LABS: HEMATOCRIT 40.1 % (39.0-50.0); HEMOGLOBIN 12.8 g/dl (14.0-18.0); IMMATURE GRANULOCYTES 0.2 % (0.0-5.0); MEAN CELL VOLUME 94.4 fL CALC (80.0-100.0); MEAN CORPUSCULAR HGB 30.1 pG CALC (26.0-32.0); MEAN CORPUSCULAR HGB CONC 31.9 g/dL CAL (32.0-36.0); NEUT# 1.9 thou/uL (1.82-7.42); RED BLOOD COUNT 4.25 mill/uL (4.70-6.10); RED CELL DISTRI WIDTH 13.1 % (11.5-15.5)
[2021-12-26 21:25] LABS: ALBUMIN 4.3 g/dL (3.2-5.0); ALKALINE PHOSPHATASE 103 u/l (38-126); AMYLASE 105 u/l (30-110); ANION GAP 10 (6-22 (CALC)); BILIRUBIN, TOTAL 0.2 mg/dL (0.0-1.4); BUN 12 mg/dL (8-23); BUN/CREATININE RATIO 13 (12-20 (CALC)); CARBON DIOXIDE 30 mmol/l (22-30); CHLORIDE 104 mmol/l (95-108); GFR FOR AFR.AMER. > 60 ML/MIN (>=60 (CALC)); GFR OTHER RACES > 60 ML/MIN (>=60 (CALC)); LIPASE 134 u/l (23-300); SGOT/AST 32 u/l (19-48); SODIUM 140 mmol/l (137-146); TOTAL PROTEIN 7.7 g/dL (6.3-8.2)
[2021-12-26 21:26] LABS: D-DIMER 0.8 mg/L (0.19-0.60)
[2021-12-26 21:29] LABS: POTASSIUM 3.5 mmol/l (3.5-5.1)
[2021-12-26 21:31] LABS: ACT PARTIAL THROMBO TIME 27.2 SECONDS (20.0-32.5); PROTHROMBIN TIME 10.2 SECONDS (9.0-12.5)
[2021-12-26 21:36] LABS: MYOGLOBIN 79 ng/mL (0 - 121)
[2021-12-26] MEDS ORDERED: ALLEGRA-D 2424 HOUR PO (23:11)
[2021-12-26] MEDS ORDERED: TORADOL PO (23:11)
[2021-12-26 23:41] VITALS: BP 154/103
== END 2021-12-26 23:31 | disposition home or self-care (01) ==
LOC: ED 20:23
PROVIDERS: Family Medicine
DX: R07.89 Other chest pain (principal); J06.9 Acute upper respiratory infection, unspecified; I10 Essential (primary) hypertension; F31.9 Bipolar disorder, unspecified; F17.200 Nicotine dependence, unspecified, uncomplicated; Z20.822 Contact with and (suspected) exposure to COVID-19

== ENCOUNTER 2022-01-04 02:11 | Emergency (ER) | payer MEDICARE ==
[2022-01-04] VITALS (7 sets, daily range): BP systolic 163–184; BP diastolic 100–132
[~2022-01-04] VITALS: Ht 180.3 cm; Wt 70.0 kg
[~2022-01-04 02:11] MED LIST changes: +ALLEGRA-D 2424 HOUR PO
[2022-01-04 02:47] LABS: HEMATOCRIT 38.3 % (39.0-50.0); HEMOGLOBIN 12.5 g/dl (14.0-18.0); IMMATURE GRANULOCYTES 0.1 % (0.0-5.0); MEAN CELL VOLUME 92.7 fL CALC (80.0-100.0); MEAN CORPUSCULAR HGB 30.3 pG CALC (26.0-32.0); MEAN CORPUSCULAR HGB CONC 32.6 g/dL CAL (32.0-36.0); NEUT# 2.06 thou/uL (1.82-7.42); RED BLOOD COUNT 4.13 mill/uL (4.70-6.10); RED CELL DISTRI WIDTH 13.1 % (11.5-15.5)
[2022-01-04 03:01] LABS: ANION GAP 10 (6-22 (CALC)); BUN 10 mg/dL (8-23); BUN/CREATININE RATIO 13 (12-20 (CALC)); CARBON DIOXIDE 29 mmol/l (22-30); CHLORIDE 104 mmol/l (95-108); CREATININE 0.8 mg/dL (0.7-1.3); GFR FOR AFR.AMER. > 60 ML/MIN (>=60 (CALC)); GFR OTHER RACES > 60 ML/MIN (>=60 (CALC)); POTASSIUM 3.9 mmol/l (3.5-5.1); SODIUM 139 mmol/l (137-146)
[2022-01-04] MEDS ORDERED: FLONASE AL50 MCG/ACT (03:30)
[2022-01-04] MEDS ORDERED: AZELASTINE HYD0.15 % NAB (03:30)
[2022-01-04] MEDS ORDERED: AMOX/K CLAV875 M1 PO (03:30)
[2022-01-04] MEDS ORDERED: NICOTINE PATCH (03:53)
== END 2022-01-04 04:00 | disposition home or self-care (01) ==
LOC: ED 02:11
PROVIDERS: Family Medicine
DX: J01.40 Acute pansinusitis, unspecified (principal); I10 Essential (primary) hypertension; F31.9 Bipolar disorder, unspecified; Z20.822 Contact with and (suspected) exposure to COVID-19; Z87.891 Personal history of nicotine dependence

== ENCOUNTER 2022-01-31 12:28 | Observation (INO) | payer MEDICARE ==
[2022-01-31] VITALS (19 sets, daily range): BP systolic 141–185; BP diastolic 87–116
[~2022-01-31] VITALS: Ht 180.3 cm; Wt 87.7 kg
[~2022-01-31 12:28] MED LIST changes: +AMOX/K CLAV875 M1 PO; +AZELASTINE HYD0.15 % NAB; +FLONASE AL50 MCG/ACT; +NICOTINE PATCH
--- NOTE | 2022-01-31 13:57 | NUR ---
PATIENT AMBULATED WITH STEADY GAIT TO ROOM IN NAD. PROVIDER NOTIFIED OF PATIENT STATUS.
--- NOTE | 2022-01-31 14:00 | NUR ---
Reassessment of patient completed. No distress noted.
[2022-01-31 14:45] LABS: HEMATOCRIT 38.2 % (39.0-50.0); HEMOGLOBIN 12.1 g/dl (14.0-18.0); IMMATURE GRANULOCYTES 0.4 % (0.0-5.0); MEAN CELL VOLUME 94.8 fL CALC (80.0-100.0); MEAN CORPUSCULAR HGB CONC 31.7 g/dL CAL (32.0-36.0); NEUT# 4.12 thou/uL (1.82-7.42); RED BLOOD COUNT 4.03 mill/uL (4.70-6.10); RED CELL DISTRI WIDTH 12.9 % (11.5-15.5)
[2022-01-31 14:46] LABS: ALBUMIN 3.9 g/dL (3.2-5.0); ALKALINE PHOSPHATASE 81 u/l (38-126); ANION GAP 13 (6-22 (CALC)); BUN 4 mg/dL (8-23); BUN/CREATININE RATIO 5 (12-20 (CALC)); CARBON DIOXIDE 29 mmol/l (22-30); CHLORIDE 106 mmol/l (95-108); CREATININE 0.8 mg/dL (0.7-1.3); GFR FOR AFR.AMER. > 60 ML/MIN (>=60 (CALC)); GFR OTHER RACES > 60 ML/MIN (>=60 (CALC)); SGOT/AST 32 u/l (19-48); SODIUM 144 mmol/l (137-146); TOTAL PROTEIN 7.1 g/dL (6.3-8.2)
[2022-01-31 14:47] LABS: BILIRUBIN, TOTAL 0.3 mg/dL (0.0-1.4)
[2022-01-31 14:55] LABS: MYOGLOBIN 82 ng/mL (0 - 121)
--- NOTE | 2022-01-31 15:00 | NUR ---
Reassessment of patient completed. No distress noted.
--- NOTE | 2022-01-31 16:40 | NUR ---
Reassessment of patient completed. No distress noted.
--- NOTE | 2022-01-31 17:58 | NUR ---
PT BROUGHT TO [facility] [place] AT THIS TIME. REPORT GIVEN AT BEDSIDE TO TYLER
--- NOTE | 2022-01-31 20:00 | NUR ---
PT IN BED AWAKE, A/O X4, ADMISSION AND ASSESSMENT DONE, PT STATES NO PAIN, NO DISTRESS NOTED, BED IN LOW POSITON, CALL LIGHT IN REACH
[2022-02-01 00:14] VITALS: BP 151/80
[2022-02-01 04:55] VITALS: BP 159/87
--- NOTE | 2022-02-01 05:42 | NUR ---
PT IN BED AWAKE, NO OVERNIGHT EVENTS, BED IN LOW POSITION, CALL LIGHT IN REACH
[2022-02-01 06:33] VITALS: BP 151/87
[2022-02-01 06:48] LABS: HEMATOCRIT 35.7 % (39.0-50.0); HEMOGLOBIN 11.4 g/dl (14.0-18.0); IMMATURE GRANULOCYTES 0.2 % (0.0-5.0); MEAN CELL VOLUME 94.4 fL CALC (80.0-100.0); MEAN CORPUSCULAR HGB 30.2 pG CALC (26.0-32.0); MEAN CORPUSCULAR HGB CONC 31.9 g/dL CAL (32.0-36.0); NEUT# 7.5 thou/uL (1.82-7.42); RED BLOOD COUNT 3.78 mill/uL (4.70-6.10); RED CELL DISTRI WIDTH 12.9 % (11.5-15.5)
--- NOTE | 2022-02-01 07:00 | NUR ---
RECEIVE REPORT FROM RUFINA LOPEZ.
[2022-02-01 07:31] LABS: ALBUMIN 3.6 g/dL (3.2-5.0); ALKALINE PHOSPHATASE 79 u/l (38-126); ANION GAP 11 (6-22 (CALC)); BILIRUBIN, TOTAL 0.3 mg/dL (0.0-1.4); BUN 9 mg/dL (8-23); BUN/CREATININE RATIO 12 (12-20 (CALC)); CARBON DIOXIDE 27 mmol/l (22-30); CHLORIDE 105 mmol/l (95-108); CREATININE 0.7 mg/dL (0.7-1.3); GFR FOR AFR.AMER. > 60 ML/MIN (>=60 (CALC)); GFR OTHER RACES > 60 ML/MIN (>=60 (CALC)); POTASSIUM 4.3 mmol/l (3.5-5.1); SGOT/AST 30 u/l (19-48); SODIUM 139 mmol/l (137-146); TOTAL PROTEIN 6.5 g/dL (6.3-8.2)
--- NOTE | 2022-02-01 08:00 | NUR ---
PATIENT ALERT AND ORIENTED. RESTING IN BED STABLE. VITAL SIGNS STABLE AT HIS TIME. PATIENT IS EDUCATED ABOUD MEDICATIONS AND NURSING PLAN FOR TODAY. PT REFER UNDERSTAND. SAFETY PRECAUTIONS IN PLACE. CALL LIGHT WITHIN REACH.
[2022-02-01 10:55] VITALS: BP 143/74
[2022-02-01] MEDS ORDERED: VIBRAMYCIN100 M2 PO (11:10)
[2022-02-01] MEDS ORDERED: MEDDOSEPAK PO (11:10)
[2022-02-01] MEDS ORDERED: ROBITUSSIN AC10 ML PO (11:11)
--- NOTE | 2022-02-01 12:28 | NUR ---
PATIENT STABLE AT THIS TIME IS DISCHARGED AT HOME. PT IS EDUCATED ABOUD MEDICATIONS AND DOCTORS FOLLOW UP. PT REFER UNDERSTAND.
--- NOTE | 2022-02-03 09:16 | NUR ---
PRELIMINARY BLOOD CULTRUES SHOW GRAM POSITIVE COCCI IN 1/4 VIALS, CONTAMINANT PER DARNELL IN MICRO. REPORTED TO [facility]. NO NEW ORDERS. WILL F/U WITH FINALS
[2022-02-07] MEDS ORDERED: TRAMADOL HCL50 MG PO (01:01)
== END 2022-02-01 12:41 | disposition home or self-care (01) ==
LOC: ED 12:28 → ED-I 16:00 → ED 16:25 → MS2 16:26
PROVIDERS: Internal Medicine; Nurse Practitioner; ADMIT Internal Medicine; ATTEND Internal Medicine
DX: J44.1 Chronic obstructive pulmonary disease with (acute) exacerbation (principal); R07.1 Chest pain on breathing; I10 Essential (primary) hypertension; E78.5 Hyperlipidemia, unspecified; F41.9 Anxiety disorder, unspecified; F31.9 Bipolar disorder, unspecified; Z87.891 Personal history of nicotine dependence; Z20.822 Contact with and (suspected) exposure to COVID-19
CPT/HCPCS: G0378; J1650

== ENCOUNTER 2022-08-13 01:06 | Emergency (ER) | payer MEDICARE ==
[~2022-08-13] VITALS: Ht 180.3 cm; Wt 82.0 kg
[2022-08-13] VITALS (13 sets, daily range): BP systolic 117–164; BP diastolic 72–104
[~2022-08-13 01:06] MED LIST changes: +TRAMADOL HCL50 MG PO; +VIBRAMYCIN100 M2 PO
[2022-08-13 03:09] LABS: URINE BILIRUBIN - DIPSTICK NEGATIVE (NEGATIVE); URINE BLOOD DIPSTICK NEGATIVE (NEGATIVE); URINE COLOR YELLOW; URINE GLUCOSE - DIPSTICK NEGATIVE (NEGATIVE); URINE KETONE NEGATIVE (NEGATIVE); URINE LEUK ESTERASE NEGATIVE (NEGATIVE); URINE PH 5.5 (4.5-8.0); URINE PROTEIN - DIPSTICK NEGATIVE (NEG-TRACE); URINE UROBILINOGEN - DIPSTICK 0.2 E.U./dL (0.2)
[2022-08-13 03:12] LABS: URINE NITRITE - DIPSTICK NEGATIVE (Negative)
[2022-08-13 03:57] LABS: BASO% 1.2 % (0-3); EOS% 8.4 % (0-8); HEMATOCRIT 41.1 % (39.0-50.0); HEMOGLOBIN 13.1 g/dl (14.0-18.0); IMMATURE GRANULOCYTES 0.2 % (0.0-5.0); LYMPH% 42.2 % (15-41); MEAN CELL VOLUME 92.2 fL CALC (80.0-100.0); MEAN CORPUSCULAR HGB 29.4 pG CALC (26.0-32.0); MEAN CORPUSCULAR HGB CONC 31.9 g/dL CAL (32.0-36.0); MONO% 10.9 % (2-13); NEUT# 1.8 thou/uL (1.82-7.42); NEUT% 37.1 % (42-76); RED BLOOD COUNT 4.46 mill/uL (4.70-6.10)
[2022-08-13 04:15] LABS: ALBUMIN 4.3 g/dL (3.2-5.0); ALKALINE PHOSPHATASE 87 u/l (38-126); ANION GAP 11 (6-22 (CALC)); BUN 11 mg/dL (8-23); BUN/CREATININE RATIO 15 (12-20 (CALC)); CARBON DIOXIDE 27 mmol/l (22-30); CHLORIDE 107 mmol/l (95-108); CREATININE 0.8 mg/dL (0.7-1.3); GFR FOR AFR.AMER. > 60 ML/MIN (>=60 (CALC)); GFR OTHER RACES > 60 ML/MIN (>=60 (CALC)); POTASSIUM 4.6 mmol/l (3.5-5.1); SGOT/AST 31 u/l (19-48); SODIUM 140 mmol/l (137-146); TOTAL PROTEIN 7.7 g/dL (6.3-8.2)
[2022-08-13] MEDS ORDERED: NAPROXEN500 MG PO (06:18)
[2022-08-13] MEDS ORDERED: TAM75CAP PO (06:18)
== END 2022-08-13 07:58 | disposition home or self-care (01) ==
LOC: ED 01:06
PROVIDERS: Emergency Medicine
DX: J11.1 Influenza due to unidentified influenza virus with other respiratory manifestations (principal); M54.50 Low back pain, unspecified; F41.9 Anxiety disorder, unspecified; I10 Essential (primary) hypertension; F31.9 Bipolar disorder, unspecified; Z20.822 Contact with and (suspected) exposure to COVID-19
CPT/HCPCS: Q9967

== ENCOUNTER 2023-02-12 18:32 | Emergency (ER) | payer OTHER, MEDICARE, MEDICAID ==
[~2023-02-12] VITALS: Ht 180.3 cm; Wt 79.0 kg
[~2023-02-12 18:32] MED LIST changes: +TAM75CAP PO
[2023-02-12 19:10] VITALS: BP 148/78
[2023-02-12] MEDS ORDERED: BENZONATATE200 MG PO (19:42)
[2023-02-12] MEDS ORDERED: MEDDOSEPAK PO (19:42)
[2023-02-12] MEDS ORDERED: ZPAK PO (19:42)
== END 2023-02-12 20:05 | disposition home or self-care (01) | DRG 203 ==
LOC: ED 18:32
DX: J40 Bronchitis, not specified as acute or chronic (principal); J44.9 Chronic obstructive pulmonary disease, unspecified; I10 Essential (primary) hypertension; F31.9 Bipolar disorder, unspecified; Z20.822 Contact with and (suspected) exposure to COVID-19